=== PATIENT | female | born 1945 | race Caucasian/White ===

== ENCOUNTER 2017-01-13 17:05 | Inpatient (IN) | payer MEDICARE ==
[~2017-01-13] VITALS: Ht 162.6 cm; Wt 68.7 kg
[2017-01-13] MEDS ORDERED: BUPR75TA6 PO (17:24)
[2017-01-13] MEDS ORDERED: ISOS30TA8 PO (17:24)
[2017-01-13] MEDS ORDERED: ASPI-496 PO (17:24)
[2017-01-13] MEDS ORDERED: METO-93 PO (17:24)
[2017-01-13] MEDS ORDERED: AMLO5TAB2 PO (17:24)
[2017-01-13] MEDS ORDERED: OMEP-110 PO (17:24)
[2017-01-13] MEDS ORDERED: LISI5TAB7 PO (17:24)
[2017-01-13] MEDS ORDERED: ESTR1TAB15 PO (17:24)
[2017-01-13] MEDS ORDERED: DIAZ5TAB PO (17:24)
[2017-01-13] MEDS ORDERED: LEVO50TA PO (17:24)
[2017-01-13] MEDS ORDERED: NITROGLYCERIN OINT 2%, 1GM TP ONE ×2 (18:00→18:04)
[2017-01-13] MEDS ORDERED: SODIUM CHLORIDE FLUSH 10ML SYR IVF ONE (18:00)
[2017-01-13 18:26] LABS: BLOOD UREA NITROGEN 15 mg/dL (7-18)
[2017-01-13 18:31] LABS: IS PT STATUS REG ER OR PRE ER? YES
[2017-01-13] MEDS ORDERED: SODIUM CHLORIDE FLUSH 10ML SYR IVF PRN (19:30)
[2017-01-13] MEDS ORDERED: NITROGLYCERIN 0.4 MG BOTTLE (25 TABS) SL PRN (20:00)
[2017-01-13] MEDS ORDERED: BISACODYL 10 MG SUPP PR PRN (20:00)
[2017-01-13] MEDS ORDERED: morphine SULFATE 10 MG/ML, 1ML IVPush PRN (20:00)
[2017-01-13] MEDS ORDERED: POLYETHYLENE GLYCOL 17 GM PACKET PO PRN (20:00)
[2017-01-13] MEDS ORDERED: ONDANSETRON 2MG/ML, 2ML IVPush PRN (20:00)
[2017-01-13 20:38] VITALS: BP 135/75
[2017-01-13] MEDS: BUPROPION 75 MG TABLET PO SCH (21:00)
[2017-01-13] MEDS: SODIUM CHLORIDE FLUSH 3ML SYRINGE IVF SCH (21:00)
[2017-01-13 21:05] VITALS: BP 135/75
[2017-01-13] MEDS ORDERED: TEMAZEPAM 15 MG CAPSULE PO PRN (22:00)
[2017-01-13] MEDS: HEPARIN 5,000 UNITS/ML, 1ML SQ SCH (22:46)
[2017-01-14 00:51] LABS: IS PT STATUS REG ER OR PRE ER? NO
[2017-01-14 01:16] VITALS: BP 99/54
[2017-01-14] MEDS: HEPARIN 5,000 UNITS/ML, 1ML SQ SCH ×2 (05:44→14:00)
[2017-01-14] MEDS ORDERED: LEVOTHYROXINE 50 MCG TABLET PO SCH (06:00)
[2017-01-14 06:30] LABS: IS PT STATUS REG ER OR PRE ER? NO
[2017-01-14 07:47] VITALS: BP 125/73
[2017-01-14] MEDS ORDERED: DIAZEPAM 5 MG TABLET ONE (07:55)
[2017-01-14] MEDS: SODIUM CHLORIDE FLUSH 3ML SYRINGE IVF SCH (07:58)
[2017-01-14] MEDS: BUPROPION 75 MG TABLET PO SCH (07:59)
[2017-01-14] MEDS ORDERED: REGADENOSON 0.4 MG/5 ML SYRINGE ONE (08:38)
[2017-01-14] MEDS ORDERED: SENNA/DOCUSATE TABLET PO SCH (09:00)
[2017-01-14] MEDS ORDERED: ASPIRIN 81 MG TABLET EC PO SCH (09:00)
[2017-01-14] MEDS ORDERED: AMLODIPINE 5 MG TABLET PO SCH (09:00)
[2017-01-14] MEDS ORDERED: DIAZEPAM 5 MG TABLET PO SCH (09:00)
[2017-01-14] MEDS ORDERED: LISINOPRIL 5 MG TABLET PO SCH (09:00)
[2017-01-14] MEDS ORDERED: ISOSORBIDE MONONITRATE ER 30 MG TABLET PO SCH (09:00)
[2017-01-14] MEDS ORDERED: METOPROLOL SUCCINATE 50 MG TAB.ER.24H PO SCH (09:00)
[2017-01-14] MEDS ORDERED: ESTRADIOL 1 MG TABLET PO SCH (09:00)
[2017-01-14] MEDS ORDERED: RANO500T2 PO (14:32)
[2017-01-14] MEDS ORDERED: NITR0.4T SL (14:32)
[2017-01-14] MEDS ORDERED: ISOS60TA36 PO (16:41)
[2017-01-14] MEDS ORDERED: RANOLAZINE 500 MG TAB.ER.12H PO SCH (21:00)
== END 2017-01-14 18:08 | disposition home or self-care (01) | DRG 303 ==
LOC: ED 19:10 → EDIP 19:14 → ED 19:42 → 5SO 20:44
PROVIDERS: ADMIT Family Medicine
DX: I25.119 Atherosclerotic heart disease of native coronary artery with unspecified angina pectoris (principal); E03.9 Hypothyroidism, unspecified; I10 Essential (primary) hypertension; M79.7 Fibromyalgia; Z66 Do not resuscitate; K21.9 Gastro-esophageal reflux disease without esophagitis; E78.5 Hyperlipidemia, unspecified; H91.90 Unspecified hearing loss, unspecified ear; Z60.2 Problems related to living alone; I25.2 Old myocardial infarction; Z82.0 Family history of epilepsy and other diseases of the nervous system; Z87.891 Personal history of nicotine dependence; Z90.710 Acquired absence of both cervix and uterus; Z90.49 Acquired absence of other specified parts of digestive tract; Z88.0 Allergy status to penicillin; Z88.8 Allergy status to other drugs, medicaments and biological substances
CPT/HCPCS: 36415; 71010; 78452; 80048; 82040; 84439; 84443; 84484; 85025; 85610; 85730; 93005; 93017; 99285; J1644; J2785; A9502; C9898